=== PATIENT | female | born 1975 | race Caucasian/White ===

== ENCOUNTER 2017-07-08 21:35 | Emergency (ER) | payer MEDICARE ==
[~2017-07-08] VITALS: Ht 160 cm; Wt 63.5 kg
[2017-07-08 23:05] LABS: BASOPHIL# 0.1 X10e3 (0-0.3); BASOPHIL% 0.7 % (0-2.5); EOSINOPHIL# 0.1 X10e3 (0-0.7); EOSINOPHIL% 0.8 % (0.0-7.0); HEMATOCRIT 43.9 % (35.0-45.0); HEMOGLOBIN 14.4 gm/dL (12.0-16.0); LYMPHOCYTE# 2.9 X10e3 (1.0-3.5); LYMPHOCYTE% 24.5 % (17.0-45.0); MEAN CELL VOLUME 85.5 FL (83-96); MEAN CORPUSCULAR HEMOGLOBIN 28.1 PG (28-34); MEAN CORPUSCULAR HGB CONC 32.9 g/dL (30-36); MEAN PLATELET VOLUME 8.2 FL (6.5-11.5); MONOCYTE# 0.5 X10e3 (0-1.0); MONOCYTE% 3.8 % (3.0-12.0); NEUTROPHIL# 8.4 X10e3 (1.5-7.1); NEUTROPHIL% 70.2 % (40-75); PLATELET COUNT 322 X10e3 (140-420); RED BLOOD COUNT 5.13 X10e (3.90-5.30)
[2017-07-08 23:07] LABS: DIFF IND NO
[2017-07-08 23:36] LABS: ALBUMIN SERUM 4.4 g/dL (3.5-5.0); BILIRUBIN, DIRECT 0.1 mg/dL (0.0-0.2); BILIRUBIN,INDIRECT 0.6 mg/dL (0.0-0.9); BILIRUBIN,TOTAL 0.7 mg/dL (0.2-2.0); CALCIUM SERUM 9.3 mg/dL (8.4-10.2); CREATININE SERUM 0.8 mg/dL (0.6-1.4); GLOM FILT RATE Estimated 90.4 mL/min (>60); POTASSIUM 3.7 mmol/L (3.5-5.1)
[2017-07-09 01:05] LABS: URINE SOURCE CLEAN CATCH
[2017-07-09 01:16] LABS: URINE APPEARANCE CLEAR; URINE BILIRUBIN NEG (NEG); URINE BLOOD NEG (NEG); URINE COLOR YELLOW; URINE GLUCOSE NEG (NEG); URINE KETONE NEG (NEG); URINE LEUKOCYTE ESTERASE NEG (NEG); URINE NITRATE NEG (NEG); URINE PROTEIN NEG (NEG); URINE SPECIFIC GRAVITY 1.027 (1.003-1.035); URINE UROBILINOGEN 0.2 MG/DL (NEG)
[2017-07-09 01:18] LABS: CULTURE INDICATED? NO
[2017-07-09 01:26] LABS: AMPHETAMINE NEG (NEG); BARBITURATES NEG (NEG); BENZODIAZEPINES NEG (NEG); COCAINE NEG (NEG); MARIJUANA NEG (NEG); OPIATES NEG (NEG); TRICYCLIC ANTIDEPRESSANTS NEG (NEG); U METHADONE NEG (NEG)
== END 2017-07-09 01:31 | disposition home or self-care (01) ==
LOC: CED 21:35
PROVIDERS: Emergency Medicine
DX: R19.7 Diarrhea, unspecified (principal)
CPT/HCPCS: 36415; 80048; 80076; 80307; 81003; 82150; 83690; 85025; 96361; 96374; 99284; J2405